=== PATIENT | female | born 1955 | race Caucasian/White ===

== ENCOUNTER 2017-08-03 12:12 | Observation (INO) ==
--- NOTE | 2017-08-03 12:28 | Emergency Department Note ---
Disposition Clinical Impression: Atrial fibrillation with RVR Disposition: Admitted As Inpatient Condition: Fair Referrals: Nino Ruiz MD [Primary Care Provider] - Forms: ED Satisfaction Letter Time of Disposition: 12:46 Arrhythmia/Palpitations HPI - General Chief Complaint: ED Arrhythmia/Palpitations Stated Complaint: A-FIB Time Seen by Provider: 08/03/17 12:20 Source: patient Mode of arrival: EMS Limitations: no limitations Nursing Notes Reviewed: Yes Vital Signs Reviewed: Yes - History of Present Illness HPI Narrative: 62-year-old with history of atrial fibrillation last 3 years who is controlled on medication with Coumadin comes in today because of recent palpitations. Patient was seen at outside facility and noted to have A. fib RVR and was sent to the ER for evaluation. Denies chest pain. Pt Subjective Complaint: rapid heart beat, "heart racing" Onset (ago): Just [employer] Duration: intermittent Severity: moderate Context: occurred during rest Arrhythmia History: atrial fibrillation Associated symptoms: Reports: denies other symptoms - Related Data Home Medications Medication Instructions Recorded Confirmed Flecainide Acetate 50 mg PO BID 08/03/17 08/03/17 Levothyroxine Sodium [Levoxyl] 150 mcg PO DAILY 08/03/17 08/03/17 Metoprolol Succinate [Toprol Xl] 50 mg PO DAILY 08/03/17 08/03/17 Omeprazole [PriLOSEC] 20 mg PO DAILY 08/03/17 08/03/17 Venlafaxine XR (24 HR) [Effexor XR] 150 mg PO DAILY 08/03/17 08/03/17 Warfarin [Coumadin] 5 mg PO DAILY 08/03/17 08/03/17 cloNIDine HCl [CloNIDine HCl] 0.1 mg PO DAILY 08/03/17 08/03/17 Allergies Allergy/AdvReac Type Severity Reaction Status Date / Time povidone-iodine Allergy See Verified 08/03/17 10:57 [From Betadine] Comments soap [From Betadine] Allergy See Verified 08/03/17 10:57 Comments All systems ED: reviewed and negative except as stated. Constitutional: Denies: fever, chills, weakness, weight change Eyes: Denies: eye pain, eye discharge, vision change ENT ED: Denies: ear pain, throat pain, dental pain, hearing loss, epistaxis, congestion, dysphagia Cardiovascular: Reports: palpitations. Denies: chest pain, dyspnea on exertion , edema, syncope Respiratory: Denies: cough, dyspnea, wheezes, hemoptysis, stridor Gastrointestinal: Denies: abdominal pain, nausea, vomiting, diarrhea, constipation, hematemesis, melena, hematochezia Genitourinary: Denies: dysuria, frequency, hematuria, discharge Musculoskeletal: Denies: back pain, neck pain, arthralgia, myalgia Integumentary: Denies: rash, abrasion, lesions Neurological: Denies: headache, weakness, numbness, paresthesias, confusion, abnormal gait, vertigo Psychiatric: Denies: anxiety, depression, suicidal thoughts, homicidal thoughts , auditory hallucinations, visual hallucinations Endocrine: Denies: fatigue Hematological/Lymphatic: Denies: easy bleeding, easy bruising Allergic/Immunologic: Denies: facial swelling, urticaria Past Medical History - Past Medical History Medical history: Reports: atrial fibrillation, osteoporosis, thyroid disease, valvular heart disease Surgical history: Reports: breast surgery (right biopsy), hysterectomy (partial) , other (colonoscopy with polypectomy, left shoulder arthroscopy, and laryngoscopy with biopsy 04/2014) Psychiatric history: Reports: anxiety, panic disorder - Social History Smoking Status: Never smoker Smokeless Tobacco Status: No Alcohol use: Reports: none Drug use: Reports: none Physical Exam - General Limitations: no limitations General appearance: alert, in no apparent distress - Head Head exam: atraumatic, normocephalic, normal inspection - Eye Eye exam: Present: normal appearance, PERRL, EOMI - ENT ENT exam: normal exam, normal oropharynx, mucous membranes moist - Neck Neck exam: Present: normal inspection, full ROM, trachea midline - Chest Chest inspection: Present: normal inspection, symmetric chest wall rise - Respiratory Respiratory exam: Present: normal lung sounds bilaterally - Cardiovascular Cardiovascular exam: Present: tachycardia, irregular rhythm - Abdominal Exam Abdominal exam: Present: soft, Non-Tender. Absent: tenderness, distention, guarding, rebound, rigidity - Extremities Exam Extremities exam: Present: normal inspection, full ROM. Absent: tenderness, pedal edema - Expanded Lower Extremity Exam Neurovascular/Tendon exam: Absent: motor deficit, sensory deficit, tendon deficit Gait: observed and normal - Back Exam Back exam: Present: normal inspection, full ROM. Absent: tenderness - Neurological Exam Neurological exam: Present: alert, oriented X3 - Psychiatric Psychiatric exam: Present: normal affect, normal mood - Skin Skin exam: Present: warm, dry, intact, normal color Course - Reevaluation(s) Reevaluation #1: Echocardiogram 04/2017 EF of 65%. Time: 12:44 Reevaluation #2: Hospitals requested we increased the rate to 5 mg/h. Rate was increased patient 's blood pressure 177 systolic. Patient said she felt a little nauseated otherwise no symptoms. A repeat blood pressure was 89 over palp. We will give her a fluid bolus and monitor her pressure closely. Time: 14:46 - Consultations Consultation #1: Discussed with Dr. Tellez, admit. Time: 14:27 Vital Signs Temperature 97.4 F L 08/03/17 12:18 Pulse Rate 110 08/03/17 12:18 Respiratory Rate 16 08/03/17 12:18 Blood Pressure 124/86 08/03/17 12:18 O2 Sat by Pulse Oximetry 99 08/03/17 12:18 Temperature 97.4 F L 08/03/17 12:18 Pulse Rate 125 08/03/17 14:13 Respiratory Rate 22 08/03/17 14:13 Blood Pressure 105/79 08/03/17 14:13 O2 Sat by Pulse Oximetry 98 08/03/17 14:14 Oxygen Delivery Oxygen Delivery Room Air Arrhythmia/Palpitations - Lab Data Result diagrams: 08/03/17 12:47 08/03/17 12:47 Lab Results 08/03/17 08/03/17 08/03/17 Range/Units 12:47 12:47 12:47 WBC 8.0 (4.3-11.1) K/mcL RBC 4.35 (3.82-4.97) M/mcL Hgb 12.8 (11.5-15.4) g/dL Hct 38.5 (35.3-44.9) % MCV 88.5 (83.0-100.0) fL MCH 29.4 (28.0-33.3) pg MCHC 33.2 (31.6-35.5) g/dL RDW 14.3 (11.5-14.5) % Plt Count 289 (140-400) K/mcL MPV 11.0 (9.4-12.4) fL Immature Gran % 0.4 (0-4) % Seg Neutrophils % 65.5 % Lymphocytes % 22.3 % Monocytes % 9.4 % Eosinophils % 1.4 % Basophils % 1.0 % Neutrophils # 5.3 (1.6-8.9) K/mcL Lymphocytes # 1.8 (0.6-4.6) K/mcL Monocytes # 0.8 (0.0-1.3) K/mcL Eosinophils # 0.1 (0.0-0.6) K/mcL Basophils # 0.1 (0.0-0.2) K/mcL PT 33.8 H (9.4-12.1) Seconds INR 3.1 APTT 46.8 H (26.0-36.0) Seconds Sodium 141 (136-145) mEq/L Potassium 4.2 (3.5-5.1) mEq/L Chloride 111 H (98-107) mEq/L Carbon Dioxide 22 L (23-29) mEq/L BUN 15 (8-23) mg/dL Creatinine 0.77 (0.60-1.20) mg/dL Est GFR ( Amer) > 60 (> 60) Est GFR (Non-Af Amer) > 60 (> 60) BUN/Creatinine Ratio 19 (6-26) Glucose 93 (70-105) mg/dL Calculated Osmolality 293 (280-300) Calcium 9.0 (8.6-10.3) mg/dL Troponin I < 0.03 (< 0.04) ng/mL TSH 1.301 (0.340-5.600) mcIU/mL - EKG Data EKG attestation: Yes I reviewed and interpreted this EKG. Rate: tachycardia Rhythm: A.Fib [place]/QRS: normal When compared to previous EKG there are: no significant changes Interpretation: other (A. fib RVR) Critical Care Time Critical Care Time: Yes Total Critical Care Time: 30 Attestation: The high probability of a clinically significant, sudden or life threatening deterioration of the [cardiovascular] system(s) required my full and direct attention, intervention and personal management. The aggregate critical care time was [30] minutes. This time is in addition to time spent performing reported procedures but includes the following: [x] Data Review and interpretation [x] Patient assessment and monitoring of vital signs [x] Documentation [x] Medication orders and management
[2017-08-03 13:11] LABS: Basophils # 0.1 K/mcL (0.0-0.2); Eosinophils # 0.1 K/mcL (0.0-0.6); Eosinophils % 1.4 %; Hematocrit 38.5 % (35.3-44.9); Hemoglobin 12.8 g/dL (11.5-15.4); Immature Granulocytes % 0.4 % (0-4); Lymphocytes # 1.8 K/mcL (0.6-4.6); Lymphocytes % 22.3 %; Mean Corpuscular HGB Conc 33.2 g/dL (31.6-35.5); Mean Corpuscular Hemoglobin 29.4 pg (28.0-33.3); Mean Corpuscular Volume 88.5 fL (83.0-100.0); Monocytes # 0.8 K/mcL (0.0-1.3); Monocytes % 9.4 %; Neutrophils # 5.3 K/mcL (1.6-8.9); Platelet Count 289 K/mcL (140-400); Red Blood Count 4.35 M/mcL (3.82-4.97); Red Cell Distribution Width 14.3 % (11.5-14.5); Segmented Neutrophils % 65.5 %
[2017-08-03 13:20] LABS: INR 3.1; Prothrombin Time 33.8 Seconds (9.4-12.1)
[2017-08-03 13:23] LABS: Activated Partial Thrombo Time 46.8 Seconds (26.0-36.0)
[2017-08-03 13:34] LABS: BUN/Creatinine Ratio 19 (6-26); Blood Urea Nitrogen 15 mg/dL (8-23); Carbon Dioxide 22 mEq/L (23-29); Chloride 111 mEq/L (98-107); Glucose 93 mg/dL (70-105); Osmolality,Calculated 293 (280-300); Potassium 4.2 mEq/L (3.5-5.1); Sodium 141 mEq/L (136-145); eGFR For African Americans > 60 (> 60); eGFR For Non-African Americans > 60 (> 60)
[2017-08-03 13:36] LABS: Troponin I < 0.03 ng/mL (< 0.04)
[2017-08-03 13:47] LABS: Thyroid Stimulating Hormone 1.301 mcIU/mL (0.340-5.600)
--- NOTE | 2017-08-03 14:39 | Internal Med History&Physical ---
Date of Encounter: 08/03/17 Time of Encounter: 14:36 Internal Medicine - H&P: HPI Chief complaint: atrial fib Admitted From: Emergency Dept Plans for Post Hospital Care: Home History of present illness: Ms. Gallardo is a 62 year old female Patient with history of osteoporosis, mild to moderate mitral stenosis, paroxysmal atrial fibrillation on Coumadin. Patient was sent to the emergency room due to palpitation and found to be in atrial fib with RVR . patient was sent to ER . on arrival heart rate in the 140 patient started on Cardizem drip and cardiology has been consulted patient denies any chest pain hemodynamically stable at this point. Past Med Surg Social Fam HX - Past Medical History Medical history: atrial fibrillation, osteoporosis, thyroid disease, valvular heart disease Additional medical history: mitral valve stenosis, other cardiac problems, emphysema Psychiatric history: anxiety, panic disorder - Past Surgical History Surgical History: breast surgery (right biopsy), hysterectomy (partial), other ( colonoscopy with polypectomy, left shoulder arthroscopy, and laryngoscopy with biopsy 04/2014) Additional surgical history: Left arm surgery - Social History Smoking Status: Never smoker Smokeless Tobacco Status: No Alcohol use: none Drug use: none - Family History Father Adopted: No Family Member Ethnicity: Non- Living Status: Hx Family Cardiac Disorders: Yes Hx Family Respiratory Disorders: No Hx Family Cancer: Yes Hx Family GI Disorders: No Hx Family Endocrine Disorder: Yes Hx Family Neuromuscular Disorders: No Hx Family Neurologic Disorders: No Hx Family HEENT Disorders: No Hx Family Autoimmune Disorders: No Internal Medicine - H&P: Meds Flecainide Acetate 50 mg PO BID 08/03/17 [History] Levothyroxine Sodium [Levoxyl] 150 mcg PO DAILY 08/03/17 [History] Metoprolol Succinate [Toprol Xl] 50 mg PO DAILY 08/03/17 [History] Omeprazole [PriLOSEC] 20 mg PO DAILY 08/03/17 [History] Venlafaxine XR (24 HR) [Effexor XR] 150 mg PO DAILY 08/03/17 [History] Warfarin [Coumadin] 5 mg PO DAILY 08/03/17 [History] cloNIDine HCl [CloNIDine HCl] 0.1 mg PO DAILY 08/03/17 [History] 3 Allergy/AdvReac Type Severity Reaction Status Date / Time povidone-iodine Allergy See Verified 08/03/17 10:57 [From Betadine] Comments soap [From Betadine] Allergy See Verified 08/03/17 10:57 Comments All Systems PM: A 10-system review of systems was performed and is negative for pertinent findings except as documented above in the HPI. - Constitutional Constitutional: no chills, no fever(s), no night sweats - EENT Nose, mouth and throat: no dysphagia, no nasal discharge, no neck pain, no sore throat - Cardiovascular Cardiovascular ROS IM: lightheadedness, palpitations - Respiratory Respiratory: no cough, no dyspnea, no wheezing, no excessive phlegm production - Gastrointestinal Gastrointestinal: no abdominal pain, no diarrhea, no hematemesis, no hematochezia, no melena, no nausea, no vomiting - Genitourinary Genitourinary: no change in urinary stream, no dysuria, no flank pain, no hematuria - Constitutional Vitals: Temp Pulse Resp BP Pulse Ox 97.4 F L 125 22 105/79 98 08/03/17 12:18 08/03/17 14:13 08/03/17 14:13 08/03/17 14:13 08/03/17 14:14 - Eye Eye exam: Present: PERRL, conjuntiva pink, sclera anicteric Pupils: Present: PERRL - Neck Neck exam general surgery: Present: supple, trachea midline. Absent: lymphadenopathy - Cardiovascular Cardiovascular exam: Present: irregular rhythm - GI/Abdominal GI/Abdominal exam: Present: normal bowel sounds, soft, no peritoneal signs. Absent: distended, tenderness - Extremities Exam Extremities exam: Present: warm, radial pulses palpable and symmetrical. Absent : calf tenderness, cyanotic, pedal edema Internal Med - H&P Results - Labs CBC & Chem 7: 08/03/17 12:47 08/03/17 12:47 Labs: Short CBC 08/03/17 Range/Units 12:47 WBC 8.0 (4.3-11.1) K/mcL Hgb 12.8 (11.5-15.4) g/dL Hct 38.5 (35.3-44.9) % Plt Count 289 (140-400) K/mcL Neutrophils # 5.3 (1.6-8.9) K/mcL BMP 08/03/17 12:47 Sodium 141 Potassium 4.2 Chloride 111 H Carbon Dioxide 22 L BUN 15 Creatinine 0.77 Glucose 93 Calcium 9.0 Cardiac Enzymes 08/03/17 Range/Units 12:47 Troponin I < 0.03 (< 0.04) ng/mL - Impressions ITS Impressions Chest X-Ray 08/03/17 12:25 IMPRESSION: 1. No significant interval change. No evidence of acute cardiopulmonary process. 2. Findings suggestive of underlying COPD. D/ / Nick Lopez MD / Nick Lopez MD Interpreting Provider: Nick Lopez MD - Assessment and plan (1) Paroxysmal atrial fibrillation Current Visit: No Status: Chronic Assessment and plan: Patient in the differential with RVR started on Cardizem drip will resume home medication and adjust as well cardiology has been consulted (2) Hypothyroidism Current Visit: No Status: Chronic Qualifiers: Hypothyroidism type: unspecified Qualified Code(s): E03.9 - Hypothyroidism , unspecified (3) Mitral stenosis Current Visit: No Status: Chronic Assessment and plan: Mild mitral stenosis Qualifiers: Cardiac valve disease etiology: nonrheumatic Qualified Code(s): I34.2 - Nonrheumatic mitral (valve) stenosis (4) Hyperlipidemia Current Visit: No Status: Chronic Assessment and plan: Chronic Qualifiers: Hyperlipidemia type: pure hypercholesterolemia Qualified Code(s): E78.00 - Pure hypercholesterolemia, unspecified; E78.0 - Pure hypercholesterolemia (5) GERD (gastroesophageal reflux disease) Current Visit: No Status: Chronic Assessment and plan: Chronic Qualifiers: Esophagitis presence: without esophagitis Qualified Code(s): K21.9 - Gastro -esophageal reflux disease without esophagitis - Time Spent With Patient Total time spent is greater than 50% in coordination of care (as documented) at patient's floor/unit and/or counseling patient:
[2017-08-03] MEDS ORDERED: Naloxone 0.4 MG/ML INJ IVP PRN (14:42)
[2017-08-03] MEDS ORDERED: 0.9 % Sodium Chloride 1,000 ML IVC ONE (14:43)
[2017-08-03] MEDS ORDERED: 0.9 % Sodium Chloride 1,000 ML ONE (14:44)
[2017-08-03] MEDS ORDERED: 0.9 % Sodium Chloride 1,000 ML IVC SCH (14:45)
--- NOTE | 2017-08-03 16:16 | Electrocardiograph Report ---
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
[2017-08-03] MEDS ORDERED: *HR* Warfarin 4 MG TABLET PO ONE (18:21)
--- NOTE | 2017-08-03 22:26 | Event Note ---
Date of Encounter: 08/03/17 Time of Encounter: 22:02 Notified by pts. nurse ARMANI Killian that pts. HR had converted to SR and was now in the 70s. Pt. was admitted w/Afib RVR. Order to stop drip placed. PO Cardizem 30 mg ONCE PRN ordered if needed overnight. Pts. Flecainide to be held overnight d/ t major drug interaction between Cardizem and Flecainide. Pt. and HR to be monitored closely overnight. Please notify provider of changes.
[2017-08-04 01:36] LABS: INR 3.1
[2017-08-04 01:37] LABS: Alanine Aminotransferase 9 Units/L (7-52); Albumin 3.7 g/dL (3.5-5.7); Albumin/Globulin Ratio 2.1 (1.1-2.2); Alkaline Phosphatase 63 Units/L (34-104); Aspartate Amino Transferase 12 Units/L (13-39); BUN/Creatinine Ratio 19 (6-26); Bilirubin,Total 0.2 mg/dL (0.3-1.0); Blood Urea Nitrogen 14 mg/dL (8-23); Calcium 8.7 mg/dL (8.6-10.3); Carbon Dioxide 24 mEq/L (23-29); Chloride 110 mEq/L (98-107); Chol/HDL Ratio 4.5 (0-4.9); Cholesterol 214 mg/dL (< 200); Globulin 1.8 g/dL (2.4-3.5); Glucose 103 mg/dL (70-105); HDL Cholesterol 48 mg/dL (40-59); LDL Cholesterol,Calculated 144 mg/dL (0-99); Osmolality,Calculated 289 (280-300); Potassium 4.1 mEq/L (3.5-5.1); Sodium 139 mEq/L (136-145); Total Protein 5.5 g/dL (6.4-8.9); Triglycerides 108 mg/dL (< 150); eGFR For African Americans > 60 (> 60); eGFR For Non-African Americans > 60 (> 60)
[2017-08-04] MEDS: Acetaminophen 325 MG TABLET PO PRN (05:45)
[2017-08-04] MEDS ORDERED: Warfarin perPT PO SCH (09:00)
[2017-08-04] MEDS ORDERED: cloNIDine HCl 0.1 MG TABLET PO SCH (09:00)
[2017-08-04] MEDS: Venlafaxine XR (24 HR) 150 MG CAP.ER.24H PO SCH (09:53)
[2017-08-04] MEDS: Metoprolol XL (24 HR) Succ 50 MG TAB.ER.24H PO SCH (09:54)
--- NOTE | 2017-08-04 10:47 | Cardiology Consult Note ---
Date of Encounter: 08/04/17 Time of Encounter: 10:35 Assessment and Plan (1) Atrial fibrillation with RVR Current Visit: Yes Status: Acute Atrial fibrillation/flutter with RVR. H/o afib on flecainide for the past two years. Recurrent afib with RVR starting two days ago. Converted to NSR with cardizem gtt and given oral dose cardizem today. Last TTE completed in April 2017. EF preserved. Known mild aortic sclerosis and moderate rhuematic mitral stenosis with MG 7mmHg. Follows with Dr. Maradiaga for monitoring. 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 EKG 08/03/17 shows atrial fibrillation/flutterr with RVR, QTC was normal. Discussed increasing flecainide dose verses continuing cardizem. I will discuss further with Dr. Perez. For AC she is on coumadin and follows with coumadin clinic. Goal INR 2.0-3.0. Discussion w patient/family: The assessment and plan as outlined above was discussed with the patient and/or family members who expressed understanding and agreement. All questions were answered. Thank you for involving us in the care of your patient. Please call with any questions. History of Present Illness Consult date: 08/04/17 Requesting physician: Sudhaakr Almonte Consult reason: atrial fibrillation with RVR Chief complaint: Palpitations History of present illness: Ms. Gallardo is a 62 year old female with past medical history of atrial fibrillation on flecainide, hypothyroidism, and moderate mitral stenosis. She presents with the c/o elevated heart rate and palpitations starting the night before. She was found to have atrial fibrillation with RVR and was treated with cardizem gtt. Her flecainide was discontinued and she was placed on oral cardizem. She is now back in NSR. Cardiology consulted for flecainide recommendation. Past Med Surg Social Fam HX - Past Medical History Medical history: atrial fibrillation, osteoporosis, thyroid disease, valvular heart disease Additional medical history: mitral valve stenosis, other cardiac problems, emphysema Psychiatric history: anxiety, panic disorder - Past Surgical History Surgical History: breast surgery, hysterectomy, other Additional surgical history: Left arm surgery - Social History Smoking Status: Never smoker Smokeless Tobacco Status: No Alcohol use: none Drug use: none - Family History Father Adopted: No Family Member Ethnicity: Non- Living Status: Hx Family Cardiac Disorders: Yes Hx Family Respiratory Disorders: No Hx Family Cancer: Yes Hx Family GI Disorders: No Hx Family Endocrine Disorder: Yes Hx Family Neuromuscular Disorders: No Hx Family Neurologic Disorders: No Hx Family HEENT Disorders: No Hx Family Autoimmune Disorders: No Medications and Allergies Flecainide Acetate 50 mg PO BID 08/03/17 [History] Levothyroxine Sodium [Levoxyl] 150 mcg PO DAILY 08/03/17 [History] Metoprolol Succinate [Toprol Xl] 50 mg PO DAILY 08/03/17 [History] Omeprazole [PriLOSEC] 20 mg PO DAILY 08/03/17 [History] Venlafaxine XR (24 HR) [Effexor XR] 150 mg PO DAILY 08/03/17 [History] Warfarin [Coumadin] 5 mg PO DAILY 08/03/17 [History] cloNIDine HCl [CloNIDine HCl] 0.1 mg PO DAILY 08/03/17 [History] 3 Allergy/AdvReac Type Severity Reaction Status Date / Time povidone-iodine Allergy See Verified 08/03/17 10:57 [From Betadine] Comments soap [From Betadine] Allergy See Verified 08/03/17 10:57 Comments All Systems Review: The remainder of the systems were reviewed and are negative Physical Examination Vital Signs, Last 4 Hours Temp Pulse Resp BP Pulse Ox 08/04/17 07:30 97.9 F 68 16 106/50 97 General: Conversant, No Apparent Distress HEENT: Atraumatic, Normocephaly, Mucus Membranes Moist Neck: No JVD, Normal carotid pulses Cardiac: Reg Rate and Rhythm, Normal S1 and S2, No Murmur Lungs: Normal Breath Sounds, No Wheeze, Rales, Rhonchi Neuro: Alert and responsive, No focal deficits noted Abdomen: Soft, Non-Tender Skin: No rashes noted on visualized skin Musculoskeletal: No Chest Wall Tenderness Extremities: No Clubbing, No Cyanosis, No Edema, Normal Pulses Results 08/03/17 12:47 08/04/17 00:33 Lab Results 08/03/17 08/04/17 08/04/17 18:49 00:33 00:33 INR Sodium 139 Potassium 4.1 Chloride 110 H Carbon Dioxide 24 BUN 14 Creatinine 0.73 Glucose 103 Calcium 8.7 Magnesium 2.0 Total Bilirubin 0.2 L AST 12 L ALT 9 Alkaline Phosphatase 63 Troponin I < 0.03 < 0.03 B-Natriuretic Peptide 08/04/17 08/04/17 08/04/17 00:33 00:33 06:52 INR 3.1 Sodium Potassium Chloride Carbon Dioxide BUN Creatinine Glucose Calcium Magnesium Total Bilirubin AST ALT Alkaline Phosphatase Troponin I < 0.03 B-Natriuretic Peptide 497 H - Imaging and Cardiology Echo: report reviewed Cardiac cath: report reviewed - EKG Interpretation EKG results cardiology: personally reviewed Consult Discharge Plan - Plan Referrals: Nino Ruiz MD [Primary Care Provider] -
--- NOTE | 2017-08-04 15:08 | Internal Med Progress Note ---
<Sudhakar Almonte Lay - Last Filed: 08/04/17 15:06> Date of Encounter: 08/04/17 Time of Encounter: 15:06 - Assessment and plan (1) Paroxysmal atrial fibrillation Current Visit: No Status: Chronic Assessment and plan: Valvular A. fib in the setting of mitral stenosis. Patient presented initially with A. fib with RVR with heart rate in the 140s. His initially placed on Cardizem drip and overnight last night she successfully converted to normal sinus rhythm. She is currently treated with flecainide 50 mg twice a day and Toprol-XL 50 mg daily. Given recurrence of A. fib on flecainide cardiology was consulted and recommended increasing flecainide 200 mg twice a day. Given this increase will closely monitor the patient for QT prolongation per cardiology recommendations. Continue Coumadin for anticoagulation, INR was 3.1 today. Pharmacy to assist in dosing with Coumadin. (2) Mitral stenosis Current Visit: No Status: Chronic Qualifiers: Cardiac valve disease etiology: nonrheumatic Qualified Code(s): I34.2 - Nonrheumatic mitral (valve) stenosis (3) Hypothyroidism Current Visit: No Status: Chronic Assessment and plan: TSH normal. Continue Synthroid. Qualifiers: Hypothyroidism type: unspecified Qualified Code(s): E03.9 - Hypothyroidism , unspecified (4) Hyperlipidemia Current Visit: No Status: Chronic Qualifiers: Hyperlipidemia type: pure hypercholesterolemia Qualified Code(s): E78.00 - Pure hypercholesterolemia, unspecified (5) GERD (gastroesophageal reflux disease) Current Visit: No Status: Chronic Qualifiers: Esophagitis presence: without esophagitis Qualified Code(s): K21.9 - Gastro -esophageal reflux disease without esophagitis - Time Spent With Patient Total time spent is greater than 50% in coordination of care (as documented) at patient's floor/unit and/or counseling patient: - Subjective Interval history: Patient seen and examined at bedside. Patient states she feels pretty good this morning. She has no complaints. She denies chest pain, shortness breath, palpitations. - Constitutional Vitals: Temp Pulse Resp BP Pulse Ox 98.2 F 64 20 110/53 91 08/04/17 11:19 08/04/17 11:19 08/04/17 11:19 08/04/17 11:19 08/04/17 11:19 General appearance: Present: A&O X 3, pleasant, no acute distress - Respiratory Respiratory exam: Present: CTAB. Absent: rales, rhonchi, wheezes - Cardiovascular Cardiovascular exam: Present: RRR. Absent: diastolic murmur, irregular rhythm, systolic murmur, tachycardia - GI/Abdominal GI/Abdominal exam: Present: normal bowel sounds, soft. Absent: distended, tenderness - Extremities Exam Extremities exam: Present: warm. Absent: pedal edema, tenderness - Neurological Exam Neurological exam: Present: alert, oriented X3, no focal deficits Internal Medicine: Result - Labs CBC & Chem 7: 08/03/17 12:47 08/04/17 00:33 Labs: BMP 08/04/17 00:33 Sodium 139 Potassium 4.1 Chloride 110 H Carbon Dioxide 24 BUN 14 Creatinine 0.73 Glucose 103 Calcium 8.7 Cardiac Enzymes 08/03/17 08/04/17 08/04/17 Range/Units 18:49 00:33 06:52 Troponin I < 0.03 < 0.03 < 0.03 (< 0.04) ng/mL Liver Function 08/04/17 Range/Units 00:33 Total Bilirubin 0.2 L (0.3-1.0) mg/dL AST 12 L (13-39) Units/L ALT 9 (7-52) Units/L Alkaline Phosphatase 63 (34-104) Units/L Albumin 3.7 (3.5-5.7) g/dL - ABG Interpretation ABG results: PT/INR, D-dimer PT 34.0 Seconds (9.4-12.1) H 08/04/17 00:33 - VTE Reasons for not Prescribing Prophylaxis: Not indicated-Anticoagulated or INR therapeutic Consult Discharge Plan - Plan Referrals: Nino Ruiz MD [Primary Care Provider] - <Rashi Jolly - Last Filed: 08/04/17 18:41> Date of Encounter: 08/04/17 - Assessment and plan (1) Paroxysmal atrial fibrillation Current Visit: No Status: Chronic (2) Hypothyroidism Current Visit: No Status: Chronic Qualifiers: Hypothyroidism type: unspecified Qualified Code(s): E03.9 - Hypothyroidism , unspecified (3) Mitral stenosis Current Visit: No Status: Chronic Qualifiers: Cardiac valve disease etiology: nonrheumatic Qualified Code(s): I34.2 - Nonrheumatic mitral (valve) stenosis (4) Hyperlipidemia Current Visit: No Status: Chronic Qualifiers: Hyperlipidemia type: mixed hyperlipidemia Qualified Code(s): E78.2 - Mixed hyperlipidemia (5) GERD (gastroesophageal reflux disease) Current Visit: No Status: Chronic Qualifiers: Esophagitis presence: without esophagitis Qualified Code(s): K21.9 - Gastro -esophageal reflux disease without esophagitis - Time Spent With Patient Total time spent is greater than 50% in coordination of care (as documented) at patient's floor/unit and/or counseling patient: - Constitutional Vitals: Temp Pulse Resp BP Pulse Ox 97.7 F 68 17 116/69 94 08/04/17 15:40 08/04/17 15:40 08/04/17 15:40 08/04/17 15:40 08/04/17 15:40 Internal Medicine: Result - Labs CBC & Chem 7: 08/03/17 12:47 08/04/17 00:33 Labs: BMP 08/04/17 00:33 Sodium 139 Potassium 4.1 Chloride 110 H Carbon Dioxide 24 BUN 14 Creatinine 0.73 Glucose 103 Calcium 8.7 Cardiac Enzymes 08/03/17 08/04/17 08/04/17 Range/Units 18:49 00:33 06:52 Troponin I < 0.03 < 0.03 < 0.03 (< 0.04) ng/mL Liver Function 08/04/17 Range/Units 00:33 Total Bilirubin 0.2 L (0.3-1.0) mg/dL AST 12 L (13-39) Units/L ALT 9 (7-52) Units/L Alkaline Phosphatase 63 (34-104) Units/L Albumin 3.7 (3.5-5.7) g/dL - ABG Interpretation ABG results: PT/INR, D-dimer PT 34.0 Seconds (9.4-12.1) H 08/04/17 00:33 - Attending Attestation I examined this patient and my medical decision-making was reviewed with the Resident Physician on 08/04/17. I agree with the documented findings, disposition and treatment plan as described except to the extent set forth below. Ms Gallardo is currently hospitalized for rapid a fib. She remains moderate to high risk. Ms Gallardo feels OK. Her meds have been adjusted by cardiology and she needs to remain on monitor. No other acute issues. Exam Alert Comfortable Mucus membranes dry Heart irreg I/P 1. A fib - Meds adjusted Further diagnoses and plan as above.
[2017-08-04] MEDS ORDERED: *HR* Warfarin 5 MG TABLET PO SCH (18:00)
[2017-08-05] MEDS: Acetaminophen 325 MG TABLET PO PRN ×2 (00:41→08:44)
[2017-08-05] MEDS: Ipratropium/Albuterol Neb 3 ML IH PRN ×2 (02:11→14:15)
[2017-08-05 05:29] LABS: INR 3.2; Prothrombin Time 35.2 Seconds (9.4-12.1)
[2017-08-05] MEDS: Venlafaxine XR (24 HR) 150 MG CAP.ER.24H PO SCH (08:43)
[2017-08-05] MEDS: Metoprolol XL (24 HR) Succ 50 MG TAB.ER.24H PO SCH (08:44)
--- NOTE | 2017-08-05 10:25 | Cardiology Progress Note ---
Date of Encounter: 08/05/17 Time of Encounter: 10:22 Assessment and Plan (1) Atrial fibrillation with RVR Current Visit: Yes Status: Acute Atrial fibrillation/flutter with RVR. H/o afib on flecainide for the past two years. Recurrent afib with RVR starting two days ago. Converted to NSR with cardizem gtt and given oral dose cardizem today. Last TTE completed in April 2017. EF preserved. Known mild aortic sclerosis and moderate rhuematic mitral stenosis with MG 7mmHg. Follows with Dr. Maradiaga for monitoring. [facility] completed 09/2014 showed mild three vessel CAD. EKG on admit 08/03/17 shows atrial fibrillation/flutterr with RVR, QTC was normal. Flecainide dose increased to 100 mg BID yesterday. Recommend monitoring with EKG until tomorrow. EKG this morning shows NSR with anterior T wave changes that are unchanged from previous EKG. QT/QTc 385/404, QRS 89. C/o SOB and chest tightness last night. She does have history of COPD. For AC she is on coumadin and follows with coumadin clinic. Goal INR 2.0-3.0. (2) COPD (chronic obstructive pulmonary disease) Current Visit: Yes Status: Acute C/o sudden onset of SOB last night with chest tightness and wheezing. Initial CXR prior to episode showed no acute changes, findings of COPD. Known history COPD. Daughter voices concern that she is still not looking and breathing well. No audible wheezes on my exam. Breathing treatments and I.S. ordered by primary team. CXR ordered. EKG shows no acute change from prior EKG. H/o min CAD on [facility] in 2014. Last TTE 04/2017 showed preserved EF. She does have moderate mitral stenosis. COPD management per primary team. Qualifiers: COPD type: emphysema Emphysema type: unspecified Qualified Code(s): J43.9 - Emphysema, unspecified Discussion w patient/family: The assessment and plan as outlined above was discussed with the patient and/or family members who expressed understanding and agreement. All questions were answered. Thank you for involving us in the care of your patient. Please call with any questions. Subjective Principal diagnosis: atrial fibrillation with RVR Interval history: Ms. Gallardo reports sudden onset SOB and chest tightness with wheezing overnight. States that she does have emphysema and uses inhaler as needed at home. Reports not feeling as bad as she did last night before. Daughter concerned due to patient looking flushed today and not breathing well. SHe was given breathing treatment with releif of her SOB. Continues to feel tight in her chest and feels like she is wheezing. Objective Vital Signs, Last 4 Hours Temp Pulse Resp BP Pulse Ox 08/05/17 06:52 97.4 F L 89 17 141/72 90 General: Conversant, No Apparent Distress HEENT: Atraumatic, Normocephaly, Mucus Membranes Moist, Other (Noted to have michel appearance this morning. ) Neck: No JVD, Normal carotid pulses Cardiac: Reg Rate and Rhythm, Normal S1 and S2, No Murmur, Other (diminished sounds posteriorly, no audible wheezes or rales) Lungs: Normal Breath Sounds, No Wheeze, Rales, Rhonchi Neuro: Alert and responsive, No focal deficits noted Abdomen: Soft, Non-Tender Skin: No rashes noted on visualized skin Musculoskeletal: No Chest Wall Tenderness Extremities: No Clubbing, No Cyanosis, No Edema, Normal Pulses Results 08/03/17 12:47 08/04/17 00:33 Lab Results 08/05/17 04:34 INR 3.2 - Imaging and Cardiology Chest Xray: pending, report reviewed - EKG Interpretation EKG results cardiology: personally reviewed - VTE Reasons for not Prescribing Prophylaxis: Not indicated-Anticoagulated or INR therapeutic Consult Discharge Plan - Plan Referrals: Nino Ruiz MD [Primary Care Provider] -
--- NOTE | 2017-08-05 10:38 | Internal Med Progress Note ---
<Sudhakar Almonte - Last Filed: 08/05/17 10:36> Date of Encounter: 08/05/17 Time of Encounter: 10:36 - Assessment and plan (1) Paroxysmal atrial fibrillation Current Visit: No Status: Chronic Assessment and plan: Valvular A. fib in the setting of mitral stenosis. Patient presented initially with A. fib with RVR with heart rate in the 140s. His initially placed on Cardizem drip and overnight last night she successfully converted to normal sinus rhythm. She is currently treated with flecainide 50 mg twice a day and Toprol-XL 50 mg daily. Given recurrence of A. fib on flecainide cardiology was consulted and recommended increasing flecainide to 100 mg twice a day. Given this increase will closely monitor the patient for QT prolongation per cardiology recommendations. Continue Coumadin for anticoagulation, INR was 3.2 today. Pharmacy to assist in dosing with Coumadin. (2) Mitral stenosis Current Visit: No Status: Chronic Qualifiers: Cardiac valve disease etiology: nonrheumatic Qualified Code(s): I34.2 - Nonrheumatic mitral (valve) stenosis (3) COPD (chronic obstructive pulmonary disease) Current Visit: Yes Status: Acute Assessment and plan: Patient reports that she has been told she has emphysema before but this appears to be based on imaging, no PFTs on file. Patient did have episodes of shortness of breath overnight. Responded well to short acting bronchodilators. Patient not requiring oxygen. We will obtain chest x-ray as ordered by cardiology. Recommend outpatient PFTs Qualifiers: COPD type: emphysema Emphysema type: unspecified Qualified Code(s): J43.9 - Emphysema, unspecified (4) Hypothyroidism Current Visit: No Status: Chronic Assessment and plan: TSH normal. Continue Synthroid. Qualifiers: Hypothyroidism type: unspecified Qualified Code(s): E03.9 - Hypothyroidism , unspecified (5) Hyperlipidemia Current Visit: No Status: Chronic Assessment and plan: LDL mildly elevated. ASCVD ten-year risk calculation is 3.1%, patient not likely to benefit from statin therapy. We will continue to recommend risk factor modification including diet and exercise, avoiding tobacco Qualifiers: Hyperlipidemia type: mixed hyperlipidemia Qualified Code(s): E78.2 - Mixed hyperlipidemia (6) GERD (gastroesophageal reflux disease) Current Visit: No Status: Chronic Assessment and plan: Asymptomatic. Continue PPI Qualifiers: Esophagitis presence: without esophagitis Qualified Code(s): K21.9 - Gastro -esophageal reflux disease without esophagitis - Time Spent With Patient Total time spent is greater than 50% in coordination of care (as documented) at patient's floor/unit and/or counseling patient: - Subjective Interval history: Patient seen and examined at bedside. Patient states she feels pretty good this morning. She has no complaints. Overnight she states that she had some chest tightness and shortness of breath. This was relieved with breathing treatments. She denies cough or sputum production. She states that she has been told she has emphysema in the past. She has an albuterol inhaler at home that she uses intermittently. Denies fever, chills, chest pain, palpitations. - Constitutional Vitals: Temp Pulse Resp BP Pulse Ox 97.4 F L 89 17 141/72 90 08/05/17 06:52 08/05/17 06:52 08/05/17 06:52 08/05/17 06:52 08/05/17 06:52 General appearance: Present: A&O X 3, pleasant, no acute distress - Respiratory Respiratory exam: Present: CTAB. Absent: rales, rhonchi, wheezes - Cardiovascular Cardiovascular exam: Present: RRR. Absent: gallop, rubs, systolic murmur - GI/Abdominal GI/Abdominal exam: Present: normal bowel sounds, soft. Absent: distended, tenderness - Extremities Exam Extremities exam: Absent: pedal edema, tenderness Internal Medicine: Result - Labs CBC & Chem 7: 08/03/17 12:47 08/04/17 00:33 - ABG Interpretation ABG results: PT/INR, D-dimer PT 35.2 Seconds (9.4-12.1) H 08/05/17 04:34 - VTE Reasons for not Prescribing Prophylaxis: Not indicated-Anticoagulated or INR therapeutic Consult Discharge Plan - Plan Referrals: Nino Ruiz MD [Primary Care Provider] - <Marilin Seo - Last Filed: 08/05/17 18:21> Date of Encounter: 08/05/17 - Time Spent With Patient Total time spent is greater than 50% in coordination of care (as documented) at patient's floor/unit and/or counseling patient: - Constitutional Vitals: Temp Pulse Resp BP Pulse Ox 97.9 F 86 18 99/57 93 08/05/17 14:41 08/05/17 14:41 08/05/17 14:41 08/05/17 14:41 08/05/17 14:41 Internal Medicine: Result - Labs CBC & Chem 7: 08/05/17 10:24 08/04/17 00:33 Labs: Short CBC 08/05/17 Range/Units 10:24 WBC 12.0 H (4.3-11.1) K/mcL Hgb 11.8 (11.5-15.4) g/dL Hct 37.1 (35.3-44.9) % Plt Count 266 (140-400) K/mcL Neutrophils # 9.4 H (1.6-8.9) K/mcL - ABG Interpretation ABG results: PT/INR, D-dimer PT 35.2 Seconds (9.4-12.1) H 08/05/17 04:34 - Impressions Impressions Chest X-Ray 08/05/17 10:17 IMPRESSION: 1. Findings suggestive of COPD. 2. No radiographic evidence of acute cardiopulmonary process. D/ / Nick Lopez MD / Nick Lopez MD Interpreting Provider: Nick Lopez MD - Attending Attestation I saw and examined this patient independently, and my medical decision making was reviewed with the Resident on 2017. I agree with the documented findings, assessment and treatment plan as described in the progress note.
[2017-08-05 11:00] LABS: Basophils # 0.1 K/mcL (0.0-0.2); Basophils % 0.5 %; Eosinophils # 0.1 K/mcL (0.0-0.6); Eosinophils % 0.7 %; Hematocrit 37.1 % (35.3-44.9); Hemoglobin 11.8 g/dL (11.5-15.4); Immature Granulocytes % 0.3 % (0-4); Lymphocytes # 1.4 K/mcL (0.6-4.6); Lymphocytes % 11.4 %; Mean Corpuscular HGB Conc 31.8 g/dL (31.6-35.5); Mean Corpuscular Hemoglobin 28.3 pg (28.0-33.3); Mean Platelet Volume 10.9 fL (9.4-12.4); Monocytes % 8.6 %; Neutrophils # 9.4 K/mcL (1.6-8.9); Platelet Count 266 K/mcL (140-400); Red Blood Count 4.17 M/mcL (3.82-4.97); Segmented Neutrophils % 78.5 %
[2017-08-05] MEDS ORDERED: *HR* Warfarin 4 MG TABLET PO ONE (18:00)
[2017-08-06 05:09] LABS: Basophils % 0.6 %; Eosinophils # 0.2 K/mcL (0.0-0.6); Eosinophils % 2.3 %; Hemoglobin 12.1 g/dL (11.5-15.4); Immature Granulocytes % 0.3 % (0-4); Lymphocytes # 1.7 K/mcL (0.6-4.6); Lymphocytes % 23.3 %; Mean Corpuscular HGB Conc 31.8 g/dL (31.6-35.5); Mean Corpuscular Hemoglobin 28.1 pg (28.0-33.3); Mean Corpuscular Volume 88.4 fL (83.0-100.0); Mean Platelet Volume 11.3 fL (9.4-12.4); Monocytes # 0.7 K/mcL (0.0-1.3); Neutrophils # 4.5 K/mcL (1.6-8.9); Platelet Count 272 K/mcL (140-400); Segmented Neutrophils % 63.5 %
[2017-08-06 05:12] LABS: INR 3.8; Prothrombin Time 42.5 Seconds (9.4-12.1)
[2017-08-06 07:42] VITALS: BP 122/69
--- NOTE | 2017-08-06 09:01 | Cardiology Progress Note ---
Date of Encounter: 08/06/17 Time of Encounter: 08:49 Assessment and Plan (1) Atrial fibrillation with RVR Current Visit: Yes Status: Acute Atrial fibrillation/flutter with RVR. H/o afib on flecainide 50 mg BID for the past two years. Recurrent afib with RVR starting earlier this week. Converted to NSR with cardizem gtt. Flecainide increased to 100 mg BID 08/04/17 s/p 4 doses at increased amount. Remains NSR. Last TTE completed in April 2017. EF preserved. Known mild aortic sclerosis and moderate rhuematic mitral stenosis with MG 7mmHg. Follows with Dr. Maradiaga for monitoring. [facility] completed 09/2014 showed mild three vessel CAD (20%stenosis). EKG on admit 08/03/17 shows atrial fibrillation/flutterr with RVR with T wave changes. QTC was normal. Flecainide dose increased to 100 mg BID yesterday. Recommend monitoring with EKG until tomorrow. EKG 08/05/17 shows NSR RBBB with anterior T wave changes that are not significantly changed from previous EKGs. QT/QTc 385/404, QRS 89. EKG 08/06/17 shows NSR RBBB, QT/QTc 401/418, QRS 102. For AC she is on coumadin and follows with coumadin clinic. Pharmacy dosing. Goal INR 2.0-3.0. Cardioloy will sign off. Patient okay for discharge from cardiology standpoint. (2) COPD (chronic obstructive pulmonary disease) Current Visit: Yes Status: Acute C/o sudden onset of SOB with chest tightness and wheezing night before last. Initial CXR prior to episode showed no acute changes, findings of COPD. Troponin negative. Known history COPD per patient. Re-peat CXR - no acute change. Reports she is feeling better today. She is using nebulizers PRN. Management per primary team. Qualifiers: COPD type: emphysema Emphysema type: unspecified Qualified Code(s): J43.9 - Emphysema, unspecified Discussion w patient/family: The assessment and plan as outlined above was discussed with the patient and/or family members who expressed understanding and agreement. All questions were answered. Thank you for involving us in the care of your patient. Please call with any questions. Subjective Principal diagnosis: atrial fibrillation with RVR Interval history: Ms. Gallardo reports she is feeling better. SOB improved. Denies chest pain. Objective Vital Signs, Last 4 Hours Temp Pulse Resp BP Pulse Ox 08/06/17 07:41 98.1 F 97 18 122/69 98 08/06/17 05:57 97.5 F L 69 15 131/60 91 General: Conversant, No Apparent Distress HEENT: Atraumatic, Normocephaly, Mucus Membranes Moist Neck: No JVD, Normal carotid pulses Cardiac: Reg Rate and Rhythm, Normal S1 and S2, No Murmur Lungs: Normal Breath Sounds, No Wheeze, Rales, Rhonchi Neuro: Alert and responsive, No focal deficits noted Abdomen: Soft, Non-Tender Skin: No rashes noted on visualized skin Musculoskeletal: No Chest Wall Tenderness Extremities: No Clubbing, No Cyanosis, No Edema, Normal Pulses Results 08/06/17 04:27 08/04/17 00:33 Lab Results 08/05/17 08/06/17 08/06/17 10:24 04:27 04:27 WBC 12.0 H 7.1 Hgb 11.8 12.1 Hct 37.1 38.0 Plt Count 266 272 INR 3.8 - EKG Interpretation EKG results cardiology: personally reviewed - VTE Reasons for not Prescribing Prophylaxis: Not indicated-Anticoagulated or INR therapeutic Consult Discharge Plan - Plan Referrals: Nino Ruiz MD [Primary Care Provider] -
--- NOTE | 2017-08-06 09:21 | Electrocardiograph Report ---
[place] [id number] Test Date: 2017-08-04 Pat Name: Nemo Gallardo Department: 111 Room: [id number] Gender: F [employer] Worker: : 1955 Requested By: ODESSA Goff Order Number: [id number] Reading MD: Rosales Perez Measurements Intervals [place] Rate: 69 P: 58 MD: 157 QRS: 24 QRSD: 89 T: 19 QT: 385 QTc: 404 Interpretive Statements SINUS RHYTHM ST DEVIATION AND MODERATE T-WAVE ABNORMALITY, CONSIDER ANTERIOR ISCHEMIA Electronically Signed On 08-06-2017 9:20:19 EDT by Rosales Perez
--- NOTE | 2017-08-06 09:51 | Discharge Summary ---
<Sudhakar Almonte - Last Filed: 08/06/17 09:48> - NOTES TO OUTPATIENT PROVIDER Notes to Outpatient Provider: Flecainide was increased to 100 mg twice a day, Coumadin was supratherapeutic but not critically, recommended to patient that she hold for 2 days then resume and follow up with Coumadin clinic on Wednesday Date of Encounter: 08/06/17 Time of Encounter: 09:48 - Discharge Diagnosis (1) Paroxysmal atrial fibrillation Priority: Primary Status: Chronic (2) Mitral stenosis Priority: Secondary Status: Chronic Qualifiers: Cardiac valve disease etiology: nonrheumatic Qualified Code(s): I34.2 - Nonrheumatic mitral (valve) stenosis (3) COPD (chronic obstructive pulmonary disease) Priority: Secondary Status: Chronic Qualifiers: COPD type: emphysema Emphysema type: unspecified Qualified Code(s): J43.9 - Emphysema, unspecified (4) Hypothyroidism Priority: Secondary Status: Chronic Qualifiers: Hypothyroidism type: unspecified Qualified Code(s): E03.9 - Hypothyroidism , unspecified (5) Hyperlipidemia Priority: Secondary Status: Chronic Qualifiers: Hyperlipidemia type: mixed hyperlipidemia Qualified Code(s): E78.2 - Mixed hyperlipidemia (6) GERD (gastroesophageal reflux disease) Priority: Secondary Status: Chronic Qualifiers: Esophagitis presence: without esophagitis Qualified Code(s): K21.9 - Gastro -esophageal reflux disease without esophagitis Hospital course: Ms. Gallardo is a 62 year old female with history of paroxysmal atrial fibrillation , hypothyroidism presented with palpitations. She was found to be in atrial fibrillation with rapid ventricular response the rate in the 140s. Patient was initially put on Cardizem drip. The evening of her admission she converted back to normal sinus rhythm. Patient was on flecainide for rhythm control as an outpatient therefore we consulted cardiology for further recommendations regarding the patient's flecainide. Cardiology saw the patient and increased her flecainide dose to 100 mg twice a day. She was monitored for 4 doses of flecainide with daily EKGs that did not show any prolonging of her QTc. Patient will be discharged home on her flecainide 100 mg twice a day. During hospitalization patient also was noted to have occasional mild shortness of breath. Chest x-ray was obtained that showed hyperinflation suggestive of emphysema but no evidence of pneumonia. Patient responded well to as needed bronchodilators. Patient was maintained on her anticoagulation with warfarin, she was slightly supratherapeutic during her stay therefore we recommended that she hold her Coumadin dose for 2 days and resume on Wednesday and she has a previously scheduled follow-up appointment with the Coumadin clinic on Wednesday which she was strongly encouraged to follow-up with for further management of her Coumadin. Patient will be discharged home in stable condition. Discharge discussed with: patient, family, nurse - Time Spent with Patient Total time spent providing and/or coordinating discharge services: - Discharge Medications Prescriptions: Flecainide 100 mg PO Q12HR #60 tablet Home Medications: Levothyroxine Sodium [Levoxyl] 150 mcg PO DAILY 08/03/17 [History] Metoprolol Succinate [Toprol Xl] 50 mg PO DAILY 08/03/17 [History] Omeprazole [PriLOSEC] 20 mg PO DAILY 08/03/17 [History] Venlafaxine XR (24 HR) [Effexor Xr] 150 mg PO DAILY 08/03/17 [History] Flecainide 100 mg PO Q12HR tablet 08/06/17 [Rx] Flecainide 100 mg PO Q12HR #60 tablet 08/06/17 [Rx] Warfarin [Coumadin] 5 mg PO DAILY #0 08/06/17 [Rx] Allergies/Adverse Reactions: 3 Allergy/AdvReac Type Severity Reaction Status Date / Time povidone-iodine Allergy See Verified 08/03/17 10:57 [From Betadine] Comments soap [From Betadine] Allergy See Verified 08/03/17 10:57 Comments Date of admission: 08/03/17 17:29 Primary care physician: Nino Ruiz MD Consults: 08/04/17 09:13 Consult to Cardiology [CONS] Routine Comment: Consulting Provider: [facility] Reason for Consult: A fib on flecanide, converted, medication recs Call Completed: Yes Discharging clinician: Sudhakar Almonte Anticipated date of discharge: 08/06/17 - Constitutional Vitals: Temp Pulse Resp BP Pulse Ox 98.1 F 97 18 122/69 98 08/06/17 07:41 08/06/17 07:41 08/06/17 07:41 08/06/17 07:41 08/06/17 07:41 General appearance: Present: A&O X 3, pleasant, no acute distress - Respiratory Respiratory exam: Present: CTAB. Absent: rales, rhonchi, wheezes - Cardiovascular Cardiovascular exam: Present: RRR. Absent: gallop, rubs, systolic murmur, tachycardia - GI/Abdominal GI/Abdominal exam: Present: normal bowel sounds, soft. Absent: distended, tenderness - Extremities Exam Extremities exam: Present: warm. Absent: pedal edema, tenderness - Neurological Exam Neurological exam: Present: alert, CN II-XII intact, oriented X3, no focal deficits - Patient Status Disposition: Home, Self-Care Condition: Fair Functional capacity at discharge: independent ambulation Overall status at discharge: patient is back to baseline - Discharge Instructions Instructions: Atrial Fibrillation (DC), Chronic Obstructive Pulmonary Disease ( DC) Follow Up With: [facility] [Provider Group] (2 weeks) Nino Ruiz MD [Primary Care Provider] - 08/11/17 11:30 am () Additional Instructions: Please resume your home medications other than changes discussed here. Please take flecainide 100 mg twice a day. Please hold her Coumadin dosing for Wednesday and Wednesday and resume on Wednesday. Please follow-up with the Coumadin clinic on Wednesday as scheduled. Please follow up with her primary care physician within one week. Please follow up with cardiology in 2 weeks. Please return for any new or worsening symptoms. - Diet and Activity Activity: increase activity as tolerated Diet: advance to your usual diet - VTE Reasons for not Prescribing Prophylaxis: Not indicated-Anticoagulated or INR therapeutic <Marilin Seo - Last Filed: 08/06/17 16:36> Date of Encounter: 08/06/17 Hospital course: Ms. Gallardo is a 62 year old female - Time Spent with Patient Total time spent providing and/or coordinating discharge services: Date of admission: 08/03/17 17:29 Primary care physician: Nino Ruiz MD Consults: 08/04/17 09:13 Consult to Cardiology [CONS] Routine Comment: Consulting Provider: Andrew Vazquez Reason for Consult: A fib on flecanide, converted, medication recs Call Completed: Yes - Constitutional Vitals: Temp Pulse Resp BP Pulse Ox 98.1 F 97 18 122/69 98 08/06/17 07:41 08/06/17 07:41 08/06/17 07:41 08/06/17 07:41 08/06/17 07:41 - Attending Attestation I saw and examined this patient independently, and my medical decision making was reviewed with the Resident on 2017. I agree with the documented findings, assessment and treatment plan as described in the progress note or discharge summary.
[2017-08-06] MEDS: Metoprolol XL (24 HR) Succ 50 MG TAB.ER.24H PO SCH (10:35)
[2017-08-06] MEDS: Venlafaxine XR (24 HR) 150 MG CAP.ER.24H PO SCH (10:36)
--- NOTE | 2017-08-06 16:26 | Electrocardiograph Report ---
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
--- NOTE | 2017-08-06 17:55 | Electrocardiograph Report ---
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
== END 2017-08-06 12:42 | disposition home or self-care (01) ==
LOC: 2NENU 12:12 → EMEROO 12:12 → SUATTDRO 17:29 → 2NENU 18:04
PROVIDERS: ADMIT Internal Medicine Cardiovascular Disease; ATTEND Hospitalist